=== PATIENT | male | born 1980 | race Caucasian/White ===

== ENCOUNTER 2018-09-02 14:00 | Emergency (ER) | payer MEDICAID ==
[~2018-09-02] VITALS: Ht 185.4 cm; Wt 58.0 kg
[2018-09-02] MEDS ORDERED: ONDANSETRON ODT 4 MG ONE (14:26)
[2018-09-02] MEDS ORDERED: ONDANSETRON ODT 4 MG PO ONE (14:30)
[2018-09-02] MEDS ORDERED: SODIUM CHLORIDE 0.9% 1,000ML IVBOLUS ONE (14:30)
[2018-09-02] MEDS ORDERED: SODIUM CHLORIDE FLUSH 10ML SYR IVF ONE (14:30)
[2018-09-02] MEDS ORDERED: FAMOTIDINE 20 MG/2 ML IVP ONE (14:30)
[2018-09-02 14:33] LABS: BASOPHILS # (AUTO) 0.03 x10^3/uL (0-0.1); BASOPHILS % (AUTO) 1 % (0-1); EOSINOPHILS # (AUTO) 0.03 x10^3/uL (0-0.4); EOSINOPHILS % (AUTO) 1 % (1-7); LYMPHOCYTES # (AUTO) 1.49 x10^3/uL (1-3.4); LYMPHOCYTES % (AUTO) 24 % (22-44); MD NO; MEAN CORPUSCULAR HEMOGLOBIN 31.5 pg (27.5-34.5); MEAN CORPUSCULAR HGB CONC 34.5 g/dL (33.2-36.2); MEAN CORPUSCULAR VOLUME 91.3 fL (81-97); MONOCYTES % (AUTO) 10 % (2-9); NEUTROPHILS # (AUTO) 3.93 x10^3/uL (1.8-6.8); NEUTROPHILS % (AUTO) 65 % (42-75); PLATELET COUNT 299 x10^3/uL (130-400); RED BLOOD COUNT 4.93 x10^6/uL (4.38-5.82); RED CELL DISTRIBUTION WIDTH 14.1 % (9.4-14.8)
[2018-09-02] MEDS ORDERED: FAMOTIDINE 20 MG/2 ML ONE (14:35)
[2018-09-02] MEDS ORDERED: BUPR1FIL5 PO (14:39)
[2018-09-02] MEDS ORDERED: BUSP7.5T3 PO (14:39)
[2018-09-02 14:43] LABS: ALANINE AMINOTRANSFERASE 13 U/L (12-78); ALBUMIN 3.6 g/dL (3.4-5.0); ANION GAP 4 mmol/L (5-15); CALCIUM 9.2 mg/dL (8.5-10.1); CHLORIDE 104 mmol/L (98-107); CREATININE 0.97 mg/dL (0.7-1.3)
[2018-09-02 14:47] LABS: ALKALINE PHOSPHATASE 128 U/L (45-117); BILIRUBIN,TOTAL 0.4 mg/dL (0.2-1.0)
[2018-09-02 15:09] LABS: MICROSCOPIC AUTO
[2018-09-02 15:12] LABS: CULTURE INDICATED? NO
[2018-09-02 17:01] VITALS: BP 123/76
== END 2018-09-02 17:09 | disposition home or self-care (01) ==
LOC: ED 16:40
DX: R10.13 Epigastric pain (principal)
CPT/HCPCS: 36415; 76700; 80053; 81001; 83690; 85025; 96361; 96374; 99285; J7030; Q0162; S0028

== ENCOUNTER 2018-09-06 16:28 | Emergency (ER) | payer MEDICAID ==
[~2018-09-06] VITALS: Ht 185.4 cm; Wt 56.2 kg
[~2018-09-06 16:28] MED LIST: BUPR1FIL5 PO; BUSP7.5T3 PO
[2018-09-06 17:52] LABS: BASOPHILS # (AUTO) 0.03 x10^3/uL (0-0.1); BASOPHILS % (AUTO) 0 % (0-1); EOSINOPHILS # (AUTO) 0.04 x10^3/uL (0-0.4); EOSINOPHILS % (AUTO) 1 % (1-7); LYMPHOCYTES # (AUTO) 1.92 x10^3/uL (1-3.4); LYMPHOCYTES % (AUTO) 29 % (22-44); MD NO; MEAN CORPUSCULAR HEMOGLOBIN 31.6 pg (27.5-34.5); MEAN CORPUSCULAR HGB CONC 34.2 g/dL (33.2-36.2); MEAN CORPUSCULAR VOLUME 92.2 fL (81-97); MEAN PLATELET VOLUME 8.2 fL (7.4-10.4); MONOCYTES # (AUTO) 0.48 x10^3/uL (0.2-0.8); MONOCYTES % (AUTO) 7 % (2-9); NEUTROPHILS # (AUTO) 4.06 x10^3/uL (1.8-6.8); NEUTROPHILS % (AUTO) 62 % (42-75); PLATELET COUNT 271 x10^3/uL (130-400); RED BLOOD COUNT 5.17 x10^6/uL (4.38-5.82); RED CELL DISTRIBUTION WIDTH 14.4 % (9.4-14.8)
[2018-09-06 17:59] LABS: ALBUMIN 3.9 g/dL (3.4-5.0); ANION GAP 8 mmol/L (5-15); CALCIUM 9.5 mg/dL (8.5-10.1); CHLORIDE 104 mmol/L (98-107)
[2018-09-06 18:02] LABS: ALANINE AMINOTRANSFERASE 17 U/L (12-78); ALKALINE PHOSPHATASE 117 U/L (45-117); BILIRUBIN,TOTAL 0.7 mg/dL (0.2-1.0); CREATININE 0.94 mg/dL (0.7-1.3); TOTAL PROTEIN 8.2 g/dL (6.4-8.2)
[2018-09-06 18:29] VITALS: BP 113/77
[2018-09-06] MEDS ORDERED: MAALOX/HYOSCYAMINE/LIDOCAINE 45 ML BTL ONE (18:50)
[2018-09-06] MEDS ORDERED: MAALOX/HYOSCYAMINE/LIDOCAINE 45 ML BTL PO ONE (19:00)
== END 2018-09-06 18:56 | disposition home or self-care (01) ==
LOC: ED 18:14
DX: R10.13 Epigastric pain (principal); R10.11 Right upper quadrant pain; F17.200 Nicotine dependence, unspecified, uncomplicated
CPT/HCPCS: 36415; 76700; 80053; 83690; 85025; 99285

== ENCOUNTER 2018-11-13 10:03 | Inpatient (IN) | payer MEDICAID ==
[~2018-11-13] VITALS: Ht 185.4 cm; Wt 59.4 kg
[2018-11-13] MEDS ORDERED: KETOROLAC 30 MG/1 ML ONE (10:49)
[2018-11-13] MEDS ORDERED: ASPIRIN 81 MG TABLET CHEW ONE (10:50)
[2018-11-13] MEDS ORDERED: ASPIRIN 81 MG TABLET CHEW PO ONE (11:00)
[2018-11-13] MEDS ORDERED: KETOROLAC 30 MG/1 ML IM ONE (11:00)
[2018-11-13 11:22] LABS: MEAN CORPUSCULAR HEMOGLOBIN 31.4 pg (27.5-34.5); MEAN CORPUSCULAR HGB CONC 33.5 g/dL (33.2-36.2); MEAN CORPUSCULAR VOLUME 93.9 fL (81-97); MEAN PLATELET VOLUME 8.8 fL (7.4-10.4); PLATELET COUNT 182 x10^3/uL (130-400); RED BLOOD COUNT 4.69 x10^6/uL (4.38-5.82); RED CELL DISTRIBUTION WIDTH 13.9 % (9.4-14.8)
[2018-11-13 11:35] LABS: ALANINE AMINOTRANSFERASE 14 U/L (12-78); ALBUMIN 3.1 g/dL (3.4-5.0); ANION GAP 7 mmol/L (5-15); CALCIUM 8.5 mg/dL (8.5-10.1); CHLORIDE 100 mmol/L (98-107)
[2018-11-13 11:40] LABS: ALKALINE PHOSPHATASE 97 U/L (45-117); BILIRUBIN,TOTAL 0.9 mg/dL (0.2-1.0); CREATININE 0.78 mg/dL (0.7-1.3); TOTAL PROTEIN 7.6 g/dL (6.4-8.2); TROPONIN I < 0.015 ng/mL (0.000-0.045)
[2018-11-13 11:51] LABS: MD YES
[2018-11-13 11:52] LABS: BAND#(MANUAL) 2.39 x10^3/uL; BANDS%(MANUAL) 13 % (0-7); LYMPH#(MANUAL) 0.92 x10^3/uL (1-3.4); LYMPHS% (MANUAL) 5 % (22-44); MONOS#(MANUAL) 1.84 x10^3/uL (0.3-2.7); MONOS% (MANUAL) 10 % (2-9); SEG#(MANUAL) 13.25 x10^3/uL (1.8-6.8); SEGS% (MANUAL) 72 % (42-75)
[2018-11-13 11:53] LABS: <PLATELET ESTIMATE> ADEQUATE; <PLT MORPHOLOGY> NORMAL PLT MORPH; <RBC MORPHOLOGY> NORMAL
[2018-11-13 11:54] LABS: PMNS WITH VACUOLES 1+
--- NOTE | 2018-11-13 11:58 | NUR ---
Report received from JUANITA Hines, care assumed at this time, patient has ambulated to bathroom, provided UA which was theron/concentrated, urine sent to lab, JOHN, patient reports Toradol has been effective for pain relief.
[2018-11-13] MEDS ORDERED: CEFTRIAXONE PMX 1GM/50ML 50 ML ONE (12:29)
[2018-11-13 12:30] LABS: CULTURE INDICATED? YES; MICROSCOPIC INDICATED
[2018-11-13] MEDS ORDERED: AZITHROMYCIN 500 MG in SODIUM CHLORIDE 0.9% 250 ML IV ONE (12:30)
[2018-11-13] MEDS ORDERED: SODIUM CHLORIDE 0.9% 1,000ML IVBOLUS ONE (12:30)
[2018-11-13] MEDS ORDERED: CEFTRIAXONE PMX 1GM/50ML 50 ML IVPB ONE (12:30)
--- NOTE | 2018-11-13 12:41 | NUR ---
iv started, blood cx have already been drawn by lab, NS bolus and rocephin running per MAR.
--- NOTE | 2018-11-13 13:50 | NUR ---
rocephin and NS infusions finished, patient going to CT scan now, reports "I actually feel better", JOHN, KAMLESH, VSS on room air.
[2018-11-13] MEDS ORDERED: OMNIPAQUE 350 MG/ML, 100ML BOTTLE ONE (14:05)
--- NOTE | 2018-11-13 14:10 | NUR ---
patient back from ct, azithromycin running per mar with optiflow device
--- NOTE | 2018-11-13 14:22 | NUR ---
this RN has attempted to call report, floor RN is busy and will call back.
--- NOTE | 2018-11-13 14:36 | NUR ---
report given to JUANITA Goncalves, patient updated of transfer plan, RTG status now, Zithromax running per JAN, no acute changes reported/noted.
[2018-11-13] MEDS ORDERED: ONDANSETRON 2MG/ML, 2ML IVPush PRN (15:00)
[2018-11-13] MEDS ORDERED: DOCUSATE 100 MG CAPSULE PO PRN (15:00)
[2018-11-13] MEDS ORDERED: GUAIFENESIN/COD200MG-20MG/10ML LIQUID PO PRN (15:00)
[2018-11-13] MEDS ORDERED: hydrALAzine 20 MG/ML, 1ML IVPush PRN (15:00)
[2018-11-13 15:08] VITALS: BP 112/77
[2018-11-13] MEDS: D5%-0.45NACL+KCL 20MEQ 1,000 ML IV SCH (16:18)
[2018-11-13] MEDS: BUSPIRONE 10 MG TABLET PO SCH ×2 (16:18→21:13)
[2018-11-13] MEDS: NICOTINE 21 MG/24 HR PATCH.TD24 TD SCH (16:18)
[2018-11-13 18:27] VITALS: BP 102/59
[2018-11-13] MEDS: ENOXAPARIN 40 MG/0.4 ML SQ SCH (21:14)
[2018-11-13] MEDS: BUPRENORPHINE /NALOXONE 2-0.5MG FILM SL SCH (21:14)
[2018-11-13] MEDS: ACETAMINOPHEN 325 MG TABLET PO PRN (21:14)
[2018-11-14 01:24] VITALS: BP 104/63
[2018-11-14] MEDS: D5%-0.45NACL+KCL 20MEQ 1,000 ML IV SCH (04:06)
[2018-11-14 05:12] LABS: MEAN CORPUSCULAR HEMOGLOBIN 32.4 pg (27.5-34.5); MEAN CORPUSCULAR HGB CONC 34.3 g/dL (33.2-36.2); MEAN CORPUSCULAR VOLUME 94.5 fL (81-97); MEAN PLATELET VOLUME 9.6 fL (7.4-10.4); PLATELET COUNT 163 x10^3/uL (130-400)
[2018-11-14 05:15] LABS: ANION GAP 4 mmol/L (5-15); CHLORIDE 106 mmol/L (98-107); CREATININE 0.57 mg/dL (0.7-1.3)
[2018-11-14 05:50] LABS: MD YES
[2018-11-14 05:51] LABS: <RBC MORPHOLOGY> NORMAL; BAND#(MANUAL) 2.07 x10^3/uL; BANDS%(MANUAL) 14 % (0-7); LYMPH#(MANUAL) 3.26 x10^3/uL (1-3.4); LYMPHS% (MANUAL) 22 % (22-44); MONOS#(MANUAL) 0.59 x10^3/uL (0.3-2.7); MONOS% (MANUAL) 4 % (2-9); SEG#(MANUAL) 8.88 x10^3/uL (1.8-6.8); SEGS% (MANUAL) 60 % (42-75)
[2018-11-14 05:52] LABS: <PLATELET ESTIMATE> ADEQUATE; <PLT MORPHOLOGY> NORMAL PLT MORPH
[2018-11-14 07:30] VITALS: BP 94/65
[2018-11-14] MEDS: BUPRENORPHINE /NALOXONE 2-0.5MG FILM SL SCH ×2 (10:28→21:32)
[2018-11-14] MEDS: BUSPIRONE 10 MG TABLET PO SCH ×3 (10:28→21:34)
[2018-11-14] MEDS: ACETAMINOPHEN 325 MG TABLET PO PRN (11:15)
[2018-11-14] MEDS: CEFTRIAXONE PMX 1GM/50ML 50 ML IV SCH (12:55)
[2018-11-14 13:20] VITALS: BP 104/66
[2018-11-14] MEDS: AZITHROMYCIN 500 MG in SODIUM CHLORIDE 0.9% 250 ML IV SCH (13:59)
[2018-11-14] MEDS: NICOTINE 21 MG/24 HR PATCH.TD24 TD SCH (17:51)
[2018-11-14 19:53] VITALS: BP 105/53
[2018-11-14] MEDS: ENOXAPARIN 40 MG/0.4 ML SQ SCH (21:35)
[2018-11-15] MEDS: CEFTRIAXONE PMX 1GM/50ML 50 ML IV SCH ×2 (00:22→12:44)
[2018-11-15 02:40] VITALS: BP 134/75
[2018-11-15 05:01] LABS: MEAN CORPUSCULAR HEMOGLOBIN 32.1 pg (27.5-34.5); MEAN CORPUSCULAR HGB CONC 33.7 g/dL (33.2-36.2); MEAN CORPUSCULAR VOLUME 95.3 fL (81-97); MEAN PLATELET VOLUME 9.1 fL (7.4-10.4); PLATELET COUNT 197 x10^3/uL (130-400); RED BLOOD COUNT 4.22 x10^6/uL (4.38-5.82); RED CELL DISTRIBUTION WIDTH 13.9 % (9.4-14.8)
[2018-11-15 05:34] LABS: MD YES
[2018-11-15 05:36] LABS: <PLATELET ESTIMATE> ADEQUATE; <PLT MORPHOLOGY> NORMAL PLT MORPH; <RBC MORPHOLOGY> NORMAL; BAND#(MANUAL) 0.55 x10^3/uL; BANDS%(MANUAL) 6 % (0-7); BASOS#(MANUAL) 0.09 x10^3/uL (0-0.1); BASOS% (MANUAL) 1 % (0-1); EOS#(MANUAL) 0.09 x10^3/uL (0.0-0.4); EOS% (MANUAL) 1 % (1-7); LYMPHS% (MANUAL) 25 % (22-44); MONOS#(MANUAL) 0.28 x10^3/uL (0.3-2.7); MONOS% (MANUAL) 3 % (2-9); SEG#(MANUAL) 5.89 x10^3/uL (1.8-6.8); SEGS% (MANUAL) 64 % (42-75)
[2018-11-15 07:25] VITALS: BP 122/81
[2018-11-15] MEDS: BUPRENORPHINE /NALOXONE 2-0.5MG FILM SL SCH (08:47)
[2018-11-15] MEDS: BUSPIRONE 10 MG TABLET PO SCH (08:48)
[2018-11-15] MEDS ORDERED: IBUP-1222 PO (13:28)
[2018-11-15] MEDS ORDERED: AMOX-291 PO (13:28)
[2018-11-15] MEDS ORDERED: AZIT500T5 PO (13:28)
[2018-11-15 13:33] VITALS: BP 118/76
[2018-11-15] MEDS: NICOTINE 21 MG/24 HR PATCH.TD24 TD SCH (14:12)
[2018-11-15] MEDS: AZITHROMYCIN 500 MG in SODIUM CHLORIDE 0.9% 250 ML IV SCH (14:14)
[2018-11-15] MEDS ORDERED: NICO-487 TD (14:49)
== END 2018-11-15 15:59 | disposition home or self-care (01) | DRG 871 ==
LOC: ED 12:21 → EDIP 12:52 → 3NE 15:00
PROVIDERS: ADMIT Internal Medicine; ATTEND Internal Medicine
DX: A41.9 Sepsis, unspecified organism (principal); E43 Unspecified severe protein-calorie malnutrition; J13 Pneumonia due to Streptococcus pneumoniae; E87.1 Hypo-osmolality and hyponatremia; F11.20 Opioid dependence, uncomplicated; Z68.1 Body mass index [BMI] 19.9 or less, adult; F17.210 Nicotine dependence, cigarettes, uncomplicated; F41.9 Anxiety disorder, unspecified; G89.4 Chronic pain syndrome
CPT/HCPCS: 36415; 71275; 74022; 80048; 80053; 81001; 83605; 83735; 83880; 84145; 84484; 85025; 85379; 87040; 87070; 87086; 87184; 87205; 93005; 96365; 96368; G0378; J0456; J0696; J1650; J1885; Q9967; J3480; J7030; J7050